=== PATIENT | female | born 1975 | race Caucasian/White ===

== ENCOUNTER 2025-05-11 10:48 | Outpatient (AMB) | payer BC, SELFPAY ==
[2025-05-11 11:03] VITALS: BP 127/83; PULSE 77; RESP 18; TEMP 36.2; O2SAT 98; BMI 23.8
--- NOTE | 2025-05-11 11:03 | GSCOFFNT_ITS ---
Vital Signs - [facility] 05/11/25 11:03 Height 1.6 m Height Method Measured Weight 60.895 kg Weight Measurement Method Standing Scale BMI 23.8 BP 127/83 Blood Pressure Source Automatic Cuff Blood Pressure Location Left Upper Arm Position Sitting Respiration 18 Pulse 77 Pulse Source Monitor Temp 97.1 F Temp Source Temporal Artery Scan Pulse Oximetry (%) 98 Oxygen Delivery Method Room Air Med/Allergies Allergies & Medications Allergies almond Allergy (Verified 05/11/25 11:05) coconut Allergy (Verified 05/11/25 11:05) Milk Containing Products (Dairy) Allergy (Verified 05/11/25 11:05) peanut Allergy (Verified 05/11/25 11:05) shellfish derived Allergy (Verified 05/11/25 11:05) Medication Reconciliation No Known Home Medications 05/11/25 [History Confirmed 05/11/25] MA Intake Visit Data Collection New Patient or Established: New Patient (never been to [facility]) Seen by Clinical Staff ONLY (RN/MA): No Reason for Visit:: REFERRAL HEMORRHOIDS Pain Present Currently: Yes Pain Location: Rectum Pain scale:: 3 Pain Scale Used: Alexandre-Rondon/Numerical Electro Tech Required: No PCP or OBGYN visit in last 3 months: Yes Hx Now: No Do You Feel Safe at Home: Yes Authorities Contacted: N/A Smoking Status Smoking Status: Never smoker Immunization / Flu Flu Vaccine in the Last 12 Months: No Flu Vaccine Exclusion Criteria: Refused by Patient Past Medical History Surgical History OTHER SURGICAL HX: Other surgical history: x 4 Social History SMOKING STATUS: Smoking status: Never smoker HPI HPI Narrative Aurelia Davis is a 50 yo female with a past medical history of GERD, eosinophilic esophagitis, and anxiety that is referred to the clinic for evaluation of external hemorrhoids. She began to have rectal pain associated with BMs since July of 2024, shortly after her colonoscopy about 1 year ago that confirmed internal hemorrhoids and 9 colonic polyps that were removed. 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 She has also been experiencing diarrhea for the past few months and is altering her diet to best suit her lifestyle, but as each BM becomes more firm, this aggravates her symptoms further. Pt states her BMs tend to vary, sometimes she has very loose BMs multiple times per day, most recently it happened earlier this week but she states it is rare to have any hard stools So far, she has tried lidocaine and cortisone creams, sitz baths, increasing fiber and water intake, tylenol, benadryl, pelvic floor therapy, and hydrocortisone suppositories without alleviation of her pain. She denies fever, chills, unexpected weight loss, anorexia. She admits to minor fatigue, and minimal BRBPR. ROS Review of Systems Systems Reviewed: All systems reviewed, normal except as documented Constitutional Constitutional: Reports system reviewed and no additional complaints, except as documented Respiratory Comments: No acute respiratory distress Objective/Exam General Limitations: no limitations General Appearance: alert, in no apparent distress, cooperative and healthy appearing Resp Respiratory exam: Absent respiratory distress Abdominal Abdominal exam: Present soft, normal bowel sounds and scar (); Absent distention, tenderness, guarding, rigidity, mass or hernia Rectal Rectal exam: Present deferred (CRISPIN deferred due to pain), normal rectal tone, h emorrhoids (external hemorrhoidal skin tags) and other (Anterior midline anal fissure) Skin Skin exam: Present warm, dry, intact and normal color Assessment & Plan Diagnosis / Problem List (1) Anal fissure: Status: Acute Assessment & Plan: 50F referred to the clinic for evaluation of external hemorrhoids. Patient has tried many conservative treatments such as lidocaine and cortisone creams, sitz baths, suppositories, increasing fiber and water intake, benadryl, and tylenol with minmal alleviation. Presence of anterior anal fissure on physical exam and prolonged pain after each BM suggests that the anal fissure is the source of much of the patient's discomfort. Recommended that the patient try compound cream and continue with her pelvic floor therapy and follow-up in 6 weeks. (2) Colonic polyp: Status: Acute Assessment & Plan: Pt was advised to undergo surveillance colonoscopy in 5 years (2028) Office Procedures GNS Level of Care Nursing/Assessment Patient Status: Initial/New Patient Nursing Assessment/Reassesment: Medication Reconciliation, Update PMH in EMR and Vital Signs Coordination of Care: Complex Care and Chronic Disease 1-5, Education Complex Pt/Fam, Consent,records obtained, informed consent, Results/Orders obtained and Staff clarify orders New Patient Charge New Patient Point Assignment: [id number] New Patient Point Charge: [employer] ATTORNEY Level 3 ([id number]) Patient Portal Questionaires Social History Tobacco History Smoking Status: Never smoker Domestic Abuse History Do You Feel Safe at Home: Yes Review of Systems Report any current symptoms Only answer those that you have currently: Past Medical History Past Medical History Have you ever been diagnosed with any of the following:
== END 2025-05-11 11:59 | disposition home or self-care (01) ==
PROVIDERS: PCP Nurse Practitioner Family; Referring Provider Nurse Practitioner Family; Supervising Provider Surgery; Visit Provider Surgery
DX: K60.2 Anal fissure, unspecified (principal); K63.5 Polyp of colon; K64.4 Residual hemorrhoidal skin tags
CPT/HCPCS: 99203; G0463

== ENCOUNTER 2025-06-18 11:08 | Outpatient (AMB) | payer BC, SELFPAY ==
--- NOTE | 2025-06-18 11:25 | PD.GSCLVISIT ---
Vital Signs - [facility] 06/18/25 11:26 Height 1.6 m Height Method Measured Weight 60.895 kg Weight Measurement Method Standing Scale BMI 23.8 BP 118/82 Blood Pressure Source Automatic Cuff Blood Pressure Location Left Upper Arm Position Sitting Respiration 16 Pulse 71 Pulse Source Monitor Temp 97.3 F Temp Source Temporal Artery Scan Pulse Oximetry (%) 100 Oxygen Delivery Method Room Air Med/Allergies Allergies & Medications Allergies almond Allergy (Verified 06/18/25 11:26) coconut Allergy (Verified 06/18/25 11:26) Milk Containing Products (Dairy) Allergy (Verified 06/18/25 11:26) peanut Allergy (Verified 06/18/25 11:26) shellfish derived Allergy (Verified 06/18/25 11:26) Medication Reconciliation hydrocortisone acetate 25 mg rectal suppository (Anusol-HC) 25 mg MT QDAY PRN hemorrhoids #12 ea 06/18/25 [Rx] MA Intake Visit Data Collection New Patient or Established: Established Patient (seen at [facility] within 3 years) Seen by Clinical Staff ONLY (RN/MA): No Reason for Visit:: 6 WEEK F/U Pain Present Currently: No Pain Scale Used: Alexandre-Rondon/Numerical Concrete Polisher Required: No PCP or OBGYN visit in last 3 months: Yes Hx Now: No Do You Feel Safe at Home: Yes Authorities Contacted: N/A Smoking Status Smoking Status: Never smoker Immunization / Flu Flu Vaccine in the Last 12 Months: Yes Flu Vaccine Exclusion Criteria: Already Received Past Medical History Social History SMOKING STATUS: Smoking status: Never smoker HPI HPI Narrative 50F here for follow-up of anal fissure. Patient reports that since last visit her physical therapist noted posterior midline anal fissure, opposite the fissure that I had seen in clinic, but she states that her pain tends to be more posterior. Palpating the area she feels like there are numerous anal fissures, but she does state that the compound cream has helped with the pain. 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 She continues to drink plenty of water and take fiber but still feels like her reactions to different foods can be unpredictable. Patient denies any bleeding or itching, is taking sitz baths once per day. Patient notes it feels a bit swollen inside the rectum, sometimes having difficulty evacuating stool ROS Review of Systems Systems Reviewed: All systems reviewed, normal except as documented Objective/Exam General General Appearance: alert, cooperative and well groomed Resp Respiratory exam: Absent respiratory distress Assessment & Plan Diagnosis / Problem List (1) Anal fissure: Status: Acute Assessment & Plan: 50F who initially presented with a symptomatic anal fissure, today reporting pain is somewhat improved with compound cream. I explained that if her symptoms persist, the first surgical treatment would be Botox injection to the anal sphincters. I explained risks of fecal incontinence and anal fissure persistence/recurrence, however as she is still adjusting her diet and having episodes of loose stool I would recommend holding off on surgery for now. Patient expressed understanding and is agreeable with this plan Plan: Follow up in 6 weeks (2) Hemorrhoid: Status: Acute Assessment & Plan: Given her episodes of loose stools it is likely that hemorrhoids are causing a sensation of fullness in the rectum. I will prescribe Anusol suppositories and recommended continuing sitz baths plus water and fiber intake Office Procedures GNS Level of Care Nursing/Assessment Patient Status: Established Patient Nursing Assessment/Reassesment: Medication Reconciliation, Update PMH in EMR and Vital Signs Coordination of Care: Complex Care and Chronic Disease 1-5, Education Complex Pt/Fam, Consent,records obtained, informed consent, Results/Orders obtained and Staff clarify orders Established Patient Charge Established Patient Point Assignment: 95 Established Patient Point Charge: EP Level 3 (80-115) Patient Portal Questionaires Social History Tobacco History Smoking Status: Never smoker Domestic Abuse History Do You Feel Safe at Home: Yes Review of Systems Report any current symptoms Only answer those that you have currently: Past Medical History Past Medical History Have you ever been diagnosed with any of the following:
[2025-06-18 11:26] VITALS: BP 118/82; PULSE 71; RESP 16; TEMP 36.3; O2SAT 100; BMI 23.8
== END 2025-06-18 11:37 | disposition home or self-care (01) ==
PROVIDERS: PCP Nurse Practitioner Family; Referring Provider Nurse Practitioner Family; Supervising Provider Surgery; Visit Provider Surgery
DX: K60.2 Anal fissure, unspecified (principal); K64.9 Unspecified hemorrhoids
CPT/HCPCS: 99213; G0463